=== PATIENT | female | born 1965 | race Caucasian/White ===

== ENCOUNTER → 2017-02-19 | Outpatient (REF) | payer OTHER | LOC: M LAB REF 16:36 | PROVIDERS: ATTEND Physician Assistant | DX: R30.0 Dysuria (principal) ==

== ENCOUNTER → 2017-04-15 | Outpatient (REF) | payer OTHER ==
[~2017-04-15] MED LIST: CLAR10CA3 PO; FISH1000 PO; IRON65TA PO; MULT1CHW39 PO
== END ==
LOC: M SMT 12:55
PROVIDERS: ATTEND Nurse Practitioner Women's Health
DX: N20.0 Calculus of kidney (principal)

== ENCOUNTER → 2017-04-20 | Outpatient (CLI) | payer OTHER ==
--- NOTE | 2017-04-20 07:48 | REP ---
Clinical: Nephrolithiasis. Findings: Lung bases are clear. Liver, spleen, pancreas, gallbladder, and bilateral adrenal glands are normal for noncontrast evaluation. The kidneys demonstrate multiple bilateral nonobstructing renal calculi measuring up to approximately 5 mm in the left kidney and 8 mm in the right kidney. There is no evidence for hydroureteronephrosis or obvious obstructing ureteral calculi. The enteric system is without obstruction or acute inflammatory process. The pelvis demonstrates normal bladder and age-appropriate uterus/adnexa. Calcifications in the pelvis likely represent phleboliths. No pelvic fluid or ascites. No obvious adenopathy. No free air. Abdominal aorta without aneurysm. Musculoskeletal structures demonstrate age-related changes without focal osseous abnormality. Impression: 1. Bilateral nonobstructing renal calculi measuring up to 8 mm in the right kidney and 5 mm in left kidney. 2. No acute abdominopelvic pathology appreciated. Signed by Serge Abbott MD 04/20/2017 07:40 A
== END ==
LOC: M RAD 07:12
PROVIDERS: ATTEND Nurse Practitioner Women's Health
DX: N20.0 Calculus of kidney (principal)

== ENCOUNTER → 2017-05-03 | Outpatient (CLI) | payer OTHER ==
[2017-05-03 14:09] LABS: CONTROL LINE HCG INT CTR LINE PRESENT; MEAN CORPUSCULAR HGB CONC 32.7 g/dl (32.0-36.5); MEAN CORPUSCULAR VOLUME 97.9 fl (80.0-96.0); RED CELL DISTRIBUTION WIDTH 12.6 % (11.5-14.5); WHITE BLOOD COUNT 5.6 K/mm3 (4.0-10.0)
[2017-05-03 14:10] LABS: INR 0.94
[2017-05-03 14:23] LABS: ANION GAP 6 MEQ/L (8-16); BLOOD UREA NITROGEN 12 MG/DL (7-18); CALCIUM LEVEL 9.9 MG/DL (8.5-10.1); CARBON DIOXIDE LEVEL 32 MEQ/L (21-32); CHLORIDE LEVEL 104 MEQ/L (98-107); CREATININE FOR GFR 0.82 MG/DL (0.55-1.02); GLOMERULAR FILTRATION RATE > 60.0 (>51); GLUCOSE, FASTING 95 MG/DL (70-105); POTASSIUM SERUM 4.9 MEQ/L (3.5-5.1); SODIUM LEVEL 142 MEQ/L (136-145)
== END ==
LOC: M SMT 08:55
PROVIDERS: ATTEND Nurse Practitioner Women's Health
DX: N20.0 Calculus of kidney (principal)

== ENCOUNTER 2017-05-06 07:04 | Day surgery (SDC) | payer OTHER ==
[~2017-05-06] VITALS: Ht 177.8 cm; Wt 66.7 kg
[2017-05-06] MEDS ORDERED: CLINDAMYCIN 900 MG in APPROPRIATE DILUENT 1 EA IV ONE (08:00)
[2017-05-06] MEDS ORDERED: LIDOCAINE 1% SDV 5 ML VIAL SQ ONE (08:00)
[2017-05-06] MEDS ORDERED: LR 1,000 ML IV ONE (08:00)
[2017-05-06] MEDS ORDERED: fentaNYL 100 MCG/2 ML INJECTION (J3010) As Ordered ONE (08:43)
[2017-05-06] MEDS ORDERED: MIDAZOLAM INJ 2 MG/2 ML VIAL (J2250) As Ordered ONE (08:43)
[2017-05-06] MEDS ORDERED: PROPOFOL 200 MG/20 ML VIAL As Ordered ONE (08:44)
[2017-05-06] MEDS ORDERED: LIDOCAINE 2% INJ 100 MG/5 ML SDV (FOR ANES.) As Ordered ONE (08:44)
[2017-05-06 10:45] VITALS: BP 115/60
--- NOTE | 2017-05-06 13:17 | REP ---
Supine abdomen two views: Comparison is a CT abdomen pelvis of 04/20/2017. There are multiple calcifications projected over each kidney, similar to the comparison CT. There are multiple pelvic calcifications, likely phleboliths although ureteral calculi cannot be entirely discounted. The bowel gas pattern is normal. Skeletal structures are unremarkable. Signed by Dean Goins MD 05/06/2017 08:01 A
--- NOTE | 2017-05-08 15:16 | RO ---
DATE OF PROCEDURE: 05/06/2017 PREPROCEDURE DIAGNOSIS: Kidney stones. POSTPROCEDURE DIAGNOSIS: Kidney stones. OPERATIVE PROCEDURE: Right extracorporeal shock wave lithotripsy. SURGEON: Zay Jung MD PURCHASING MANAGER/SALES: None ANESTHESIA: Monitored anesthesia care (MAC). OPERATIVE INDICATIONS: This is a 52-year-old female who was found to have multiple bilateral kidney stones, the largest stone measuring around 7 to 8 mm in the lower pole of the right kidney. It was recommended she be brought to the operating room today for the above listed procedure. DESCRIPTION OF PROCEDURE: The patient was brought to the operating room and MAC anesthesia was administered. Prophylactic antibiotics were infused. She was then placed in the supine position in preparation for right-sided extracorporeal shock wave lithotripsy. Fluoroscopy was utilized to monitor stone position and fragmentation throughout the procedure. Shock waves were then delivered to the largest right-sided kidney stone, ungated. The stone did appear to fragment well. Because of the stone size we ended up spending all the time working on that stone only and none of the other stones were shocked inside of the right kidney. After 2500 shocks, the procedure was concluded. The patient was then awakened from anesthesia and transported to the recovery room in stable condition. ESTIMATED BLOOD LOSS: 0 mL. INTRAOPERATIVE COMPLICATIONS: None. SPECIMENS: None. PLAN: The patient will followup in the clinic in a few weeks with imaging prior to assess for residual stone burden. Of note she will likely need additional surgery to try to clear to remainder of her stones. We might recommend ureteroscopy for treatment of the rest of her stones. DIANE
== END 2017-05-06 11:05 | disposition home or self-care (01) ==
LOC: M SDC 07:04
PROVIDERS: ATTEND Urology
DX: N20.0 Calculus of kidney (principal); K21.9 Gastro-esophageal reflux disease without esophagitis; Z88.1 Allergy status to other antibiotic agents
CPT/HCPCS: 50590; 74000; J2250; J3010

== ENCOUNTER → 2017-05-21 | Outpatient (REF) | payer OTHER | LOC: M LAB REF 15:05 | PROVIDERS: ATTEND Family Medicine | DX: R19.7 Diarrhea, unspecified (principal) ==

== ENCOUNTER → 2017-06-10 | Outpatient (CLI) | payer OTHER ==
--- NOTE | 2017-06-10 19:34 | REP ---
KUB ABDOMEN AND PELVIS: KUB film of abdomen and pelvis is performed and compared to prior study of 05/06/2017. Evaluation of the left renal shadow is limited due to overlying bowel gas. There again appear to be tiny subcentimeter calculi in both kidneys, similar in appearance compared to the prior study. One of the larger calculi inferiorly on the right is no longer seen. Multiple phleboliths are again seen in the pelvis. There is a nonspecific bowel gas pattern. Signed by Dean Salamanca MD 06/11/2017 02:20 P
== END ==
LOC: M SMT 15:08
PROVIDERS: ATTEND Urology
DX: N20.0 Calculus of kidney (principal)

== ENCOUNTER → 2017-06-29 | Outpatient (REF) | payer OTHER | LOC: M SFHCPLAZ 11:32 | PROVIDERS: ATTEND Nurse Practitioner Family | DX: A09 Infectious gastroenteritis and colitis, unspecified (principal) ==

== ENCOUNTER → 2017-10-25 | Outpatient (CLI) | payer OTHER ==
[2017-10-25 12:37] LABS: BASO # 0.1 10^3/uL (0.0-0.2); BASO % 1.2 % (0.0-1.0); EOS # 0.1 10^3/uL (0.0-0.50); EOS % 2.4 % (0.0-3.0); HEMATOCRIT 39.8 % (36.0-47.0); HEMOGLOBIN 13.1 g/dl (12.0-16.0); IMMATURE GRANULOCYTE % 0.2 % (0-0); LYMPH # 2.2 10^3/uL (1.5-4.5); LYMPH % 44.1 % (24.0-44.0); MEAN CORPUSCULAR HEMOGLOBIN 31.2 pg (27.0-33.0); MEAN CORPUSCULAR HGB CONC 32.9 g/dl (32.0-36.5); MEAN CORPUSCULAR VOLUME 94.8 fl (80.0-96.0); MONO # 0.4 10^3/uL (0.0-0.8); MONO % 8.1 % (0.0-5.0); NEUTROPHILS # 2.2 10^3/uL (1.8-7.7); PLATELET COUNT, AUTOMATED 262 10^3/uL (150-450); RED CELL DISTRIBUTION WIDTH 12.3 % (11.5-14.5); WHITE BLOOD COUNT 4.9 10^3/uL (4.0-10.0)
[2017-10-25 13:03] LABS: ANION GAP 5 MEQ/L (8-16); BLOOD UREA NITROGEN 12 MG/DL (7-18); CALCIUM LEVEL 9.3 MG/DL (8.5-10.1); CARBON DIOXIDE LEVEL 32 MEQ/L (21-32); CHLORIDE LEVEL 105 MEQ/L (98-107); CREATININE FOR GFR 0.85 MG/DL (0.55-1.30); GLOMERULAR FILTRATION RATE > 60.0 (>51); GLUCOSE, FASTING 89 MG/DL (70-100); POTASSIUM SERUM 3.8 MEQ/L (3.5-5.1); SODIUM LEVEL 142 MEQ/L (136-145)
== END ==
LOC: M LAB 11:41
DX: I87.393 Chronic venous hypertension (idiopathic) with other complications of bilateral lower extremity (principal)
CPT/HCPCS: 80048

== ENCOUNTER → 2017-11-15 | Outpatient (REF) | payer OTHER | LOC: M SFHCCLAY 14:45 | DX: Z01.419 Encounter for gynecological examination (general) (routine) without abnormal findings (principal) ==

== ENCOUNTER → 2018-01-10 | Outpatient (CLI) | payer OTHER | LOC: M SMT 11:30 | DX: N20.0 Calculus of kidney (principal) ==

== ENCOUNTER → 2018-11-02 | Outpatient (REF) | payer OTHER ==
[2018-11-02 19:28] LABS: APPEARANCE, URINE CLEAR (CLEAR); BACTERIA, URINE AUTO NEGATIVE (NEGATIVE); BILIRUBIN, URINE AUTO NEGATIVE (NEGATIVE); BLOOD, URINE BLOOD NEGATIVE (NEGATIVE); COLOR, URINE STRAW (YELLOW); GLUCOSE, URINE (UA) AUTO NEGATIVE (NEGATIVE); KETONE, URINE AUTO NEGATIVE (NEGATIVE); LEUKOCYTE ESTERASE, URINE AUTO NEGATIVE (NEGATIVE); NITRITE, URINE AUTO NEGATIVE (NEGATIVE); PROTEIN, URINE AUTO NEGATIVE (NEGATIVE); RBC, URINE AUTO 0 /HPF (0-3); SPECIFIC GRAVITY URINE AUTO 1.002 (1.002-1.035); SQUAMOUS EPITHELIAL CELL UR AU 0 /HPF (0-6); UROBILINOGEN, URINE AUTO 0.2 mg/dL (0.0-2.0); WBC, URINE AUTO 1 /HPF (0-3)
== END ==
LOC: M SMT 16:55
PROVIDERS: ATTEND Nurse Practitioner Family
DX: N20.0 Calculus of kidney (principal)

== ENCOUNTER → 2018-11-02 | Outpatient (CLI) | payer OTHER ==
--- NOTE | 2018-11-02 15:13 | REP ---
CT of the pelvis without IV and oral contrast for renal calculus evaluation: Comparison is 04/20/2017. There are multiple nonobstructive renal calculi bilaterally, as previously. The largest calculus in the right kidney measures up to 7 mm. The largest calculus of the left kidney measures up to 8 mm. There are no ureteral calculi. There is no hydronephrosis or hydroureter on the right or the left. There is wall thickening of the proximal sigmoid colon resulting in luminal narrowing. There is pericolonic induration in this area. There is inspissated material within a diverticulum in the proximal sigmoid colon in this area. The findings are compatible with acute diverticulitis, however, neoplasm is also included in the differential diagnosis. There is no ascites. There is no pneumoperitoneum. The visualized lung de l acruz are unremarkable. The unenhanced hepatic parenchyma, gallbladder, pancreas, spleen and adrenals are unremarkable. The abdominal aorta is unremarkable. There is no retroperitoneal adenopathy or mass. There is no bowel distension or obstruction. Pelvis: There are findings in the sigmoid colon as previously discussed. Uterus and adnexa are unremarkable. There is no adenopathy or ascites. Impression: Inspissated material within a diverticulum in the proximal sigmoid colon. Proximal sigmoid colonic wall thickening and pericolonic inflammation compatible with acute diverticulitis, however, neoplasm is also included in the differential diagnosis. No ascites or adenopathy. No pneumoperitoneum. No hydronephrosis. No ureteral calculi. Multiple bilateral nonobstructive renal calculi. Electronically Signed by Dean Goins MD 11/02/2018 03:04 P
== END ==
LOC: M RAD 14:05
PROVIDERS: ATTEND Nurse Practitioner Family
DX: N20.0 Calculus of kidney (principal); K63.89 Other specified diseases of intestine

== ENCOUNTER → 2018-11-18 | Outpatient (REF) | payer OTHER | LOC: M SFHCCLAY 11:13 | PROVIDERS: ATTEND Nurse Practitioner Family | DX: Z12.4 Encounter for screening for malignant neoplasm of cervix (principal) ==

== ENCOUNTER → 2019-10-23 | Outpatient (CLI) | payer OTHER ==
[~2019-10-23] MED LIST changes: -MULT1CHW39 PO; +MULT200T7 PO
--- NOTE | 2019-10-24 02:14 | REP ---
Clinical: Acute left shoulder pain . Technique: Internal rotation, external rotation, and Y view left shoulder . Findings: No acute fracture or dislocation. The acromioclavicular and glenohumeral joints are intact. No periarticular calcifications or degenerative changes are appreciated. Sub acromial space is normal. Surrounding soft tissues are unremarkable. Impression: Normal left shoulder radiographs. Electronically Signed by Serge Abbott MD 10/24/2019 02:06 A
== END ==
LOC: M CLY 16:04
PROVIDERS: ATTEND Family Medicine
DX: M25.512 Pain in left shoulder (principal)

== ENCOUNTER → 2019-11-15 | Outpatient (REF) | payer OTHER | LOC: M SFHCCLAY 12:00 | PROVIDERS: ATTEND Nurse Practitioner Family | DX: R50.9 Fever, unspecified (principal) ==

== ENCOUNTER → 2019-11-15 | Outpatient (CLI) | payer OTHER ==
--- NOTE | 2019-11-15 19:20 | REP ---
KUB ABDOMEN AND PELVIS: Two KUB films of abdomen and pelvis are performed. There is no evidence of bowel obstruction with no dilated small bowel loops. There is mild to moderate diffuse fecal material throughout the colon. Multiple subcentimeter intrarenal calculi are seen in the right kidney. There are also multiple intrarenal calculi in the left kidney. All are subcentimeter in size. Phleboliths are seen in the pelvis. There are mild degenerative changes of the spine. IMPRESSION: Multiple bilateral nephroliths. Electronically Signed by Dean Salamanca MD 11/16/2019 10:28 A
== END ==
LOC: M CLY 14:53
PROVIDERS: ATTEND Nurse Practitioner Family
DX: N20.0 Calculus of kidney (principal)

== ENCOUNTER → 2020-05-09 | Outpatient (REF) | payer OTHER ==
[2020-05-22 15:08] LABS: Ca Ox Monohydrate 100 % (.)
== END ==
LOC: M LAB REF 17:09
PROVIDERS: ATTEND Nurse Practitioner Family
DX: N20.0 Calculus of kidney (principal)

== ENCOUNTER → 2020-11-06 | Outpatient (REF) | payer OTHER ==
[2020-11-06 16:03] LABS: CHOLESTEROL RISK RATIO 2.316 (<5)
== END ==
LOC: M SFHCCLAY 12:04
PROVIDERS: ATTEND Nurse Practitioner Family
DX: Z13.220 Encounter for screening for lipoid disorders (principal); Z01.419 Encounter for gynecological examination (general) (routine) without abnormal findings

== ENCOUNTER → 2020-11-18 | Outpatient (CLI) | payer OTHER ==
--- NOTE | 2020-11-18 11:25 | REP ---
INDICATION: N20.0, RENAL STONES COMPARISON: 11/15/2019 TECHNIQUE: Supine view of the abdomen and pelvis. FINDINGS: Innumerable small bilateral intrarenal calculi measuring up to approximately 4 mm are again identified and similar to the findings on CT dated 11/02/2018. Bowel gas pattern is nonspecific. No organomegaly. Skeletal structures are intact. No foreign body. IMPRESSION: Bilateral nephrolithiasis similar to CT dated 11/02/2018. <Electronically signed by Serge Abbott > 11/18/20 [id number]
== END ==
LOC: M CLY 10:45
PROVIDERS: ATTEND Nurse Practitioner Family
DX: N20.0 Calculus of kidney (principal)

== ENCOUNTER → 2021-09-10 | Outpatient (CLI) | payer OTHER ==
--- NOTE | 2021-09-10 12:44 | REP ---
INDICATION: M25.561, RIGHT KNEE PAIN COMPARISON: None TECHNIQUE: Five views FINDINGS: The compartments are symmetric and well maintained. There is no fracture, dislocation, or subluxation. There is no destructive osseous lesion. IMPRESSION: Within normal limits <Electronically signed by Darrick Samson > 09/10/21 [id number]
== END ==
LOC: M CLY 11:52
PROVIDERS: ATTEND Nurse Practitioner Family
DX: M25.561 Pain in right knee (principal)

== ENCOUNTER → 2021-11-06 | Outpatient (REF) | payer OTHER | LOC: M SFHCCLAY 07:22 | PROVIDERS: ATTEND Nurse Practitioner Family | DX: Z12.4 Encounter for screening for malignant neoplasm of cervix (principal) ==

== ENCOUNTER → 2022-07-29 | Outpatient (CLI) | payer OTHER | LOC: M CLY 11:53 | PROVIDERS: ATTEND Nurse Practitioner Family | DX: M51.36 Other intervertebral disc degeneration, lumbar region (principal) ==

== ENCOUNTER → 2022-08-06 | Outpatient (CLI) | payer OTHER ==
[~2022-08-06] MED LIST changes: +AMIT10TA7 PO; +CALC250T PO; +KP F1200 PO; +OMEP40CA5 PO; +PROBCAP14 PO; +VITMTA PO
== END ==
LOC: M LABSMTC 09:54
PROVIDERS: ATTEND Anesthesiology
DX: Z01.812 Encounter for preprocedural laboratory examination (principal); Z11.52 Encounter for screening for COVID-19

== ENCOUNTER 2022-08-11 11:07 | Day surgery (SDC) | payer OTHER ==
[~2022-08-11] VITALS: Ht 177.8 cm; Wt 62.6 kg
[~2022-08-11 11:07] MED LIST changes: +NS 1,000 ML IV ONE
[2022-08-11] MEDS ORDERED: propofoL 200 MG/20 ML VIAL As Ordered ONE (12:29)
[2022-08-11] MEDS ORDERED: LIDOCAINE 2% INJ 100 MG/5 ML SYRINGE As Ordered ONE (12:29)
[2022-08-11] MEDS ORDERED: MIDAZOLAM INJ 2MG/2ML VIAL (J2250 PER 1MG) As Ordered ONE (12:30)
[2022-08-11 13:40] VITALS: BP 120/67
== END 2022-08-11 13:45 | disposition home or self-care (01) ==
LOC: M OPP 11:07
PROVIDERS: ATTEND Internal Medicine Gastroenterology
DX: Z12.11 Encounter for screening for malignant neoplasm of colon (principal); K57.30 Diverticulosis of large intestine without perforation or abscess without bleeding; K64.8 Other hemorrhoids; K21.00 Gastro-esophageal reflux disease with esophagitis, without bleeding; K29.70 Gastritis, unspecified, without bleeding; M19.90 Unspecified osteoarthritis, unspecified site; F41.9 Anxiety disorder, unspecified; Z87.442 Personal history of urinary calculi; Z88.1 Allergy status to other antibiotic agents; Z88.8 Allergy status to other drugs, medicaments and biological substances; Z79.899 Other long term (current) drug therapy
CPT/HCPCS: 43239; 45378; 88305; J2250

== ENCOUNTER → 2022-12-14 | Outpatient (CLI) | payer OTHER ==
[~2022-12-14] MED LIST changes: -NS 1,000 ML IV ONE
== END ==
LOC: M WHC 09:09
PROVIDERS: ATTEND Advanced Practice Midwife
DX: Z12.31 Encounter for screening mammogram for malignant neoplasm of breast (principal)

== ENCOUNTER → 2022-12-14 | Outpatient (REF) | payer OTHER | LOC: M SFHCWAGY 12:59 | PROVIDERS: ATTEND Advanced Practice Midwife | DX: Z12.4 Encounter for screening for malignant neoplasm of cervix (principal) | CPT/HCPCS: 87624; G0123 ==

== ENCOUNTER → 2023-06-02 | Outpatient (CLI) | payer OTHER ==
[2023-06-03 09:11] LABS: C REACTIVE PROTEIN QUANTITATIV < 0.40 MG/DL (<1.0)
[2023-06-03 15:09] LABS: ANTINUCLEAR ANTIBODIES DIRECT Negative (Negative); SJOGREN'S ANTI SS-A 0.3 AI (0.0-0.9); SJOGREN'S ANTI SS-B <0.2 AI (0.0-0.9)
[2023-06-05 18:52] LABS: RHEUMATOID FACTOR QUANT 5.1 IU/ML (<14)
== END ==
LOC: M LAB 11:37
PROVIDERS: ATTEND Allergy & Immunology Allergy
DX: H04.123 Dry eye syndrome of bilateral lacrimal glands (principal)

== ENCOUNTER → 2023-11-03 | Outpatient (REF) | payer OTHER ==
[2023-11-03 17:48] LABS: BASO # 0.1 10^3/uL (0.0-0.2); BASO % 1.2 % (0.0-1.0); EOS # 0.2 10^3/uL (0.0-0.5); EOS % 2.9 % (0.0-3.0); HEMATOCRIT 40.1 % (36.0-47.0); HEMOGLOBIN 13.2 g/dl (12.0-15.5); LYMPH # 2.3 10^3/uL (1.5-5.0); LYMPH % 41.5 % (24.0-44.0); MEAN CORPUSCULAR HEMOGLOBIN 32.2 pg (27.0-33.0); MEAN CORPUSCULAR HGB CONC 32.9 g/dl (32.0-36.5); MEAN CORPUSCULAR VOLUME 97.8 fl (80.0-96.0); MONO # 0.5 10^3/uL (0.0-0.8); MONO % 8.6 % (2.0-8.0); NEUTROPHILS # 2.6 10^3/uL (1.5-8.5); NEUTROPHILS % 45.6 % (36.0-66.0); PLATELET COUNT, AUTOMATED 306 10^3/uL (150-450); WHITE BLOOD COUNT 5.6 10^3/uL (4.0-10.0)
[2023-11-03 18:06] LABS: HEMOGLOBIN A1c 5.5 % (4.0-6.0)
[2023-11-03 18:20] LABS: ALBUMIN 4.1 G/DL (3.2-5.2); ALKALINE PHOSPHATASE 93 U/L (46-116); ALT/SGPT 18 U/L (7.0-40); AST/SGOT 21 U/L (<34); BILIRUBIN,TOTAL 0.3 MG/DL (0.3-1.2); BLOOD UREA NITROGEN 23 MG/DL (9-23); CALCIUM LEVEL 9.6 MG/DL (8.5-10.1); CARBON DIOXIDE LEVEL 33 MMOL/L (20-31); CHLORIDE LEVEL 102 MMOL/L (98-107); CHOLESTEROL LEVEL 214 MG/DL (<200); CHOLESTEROL RISK RATIO 2.57 (<5); FREE T4 0.86 NG/DL (0.89-1.76); GLOMERULAR FILTRATION RATE > 60.0 (>51); GLUCOSE, FASTING 86 MG/DL (60-100); HDL CHOLESTEROL 83.1 MG/DL (>40); IRON (FE) 78 UG/DL (50-170); LDL CHOLESTEROL 116.7 MG/DL (<100); NON-HDL-C 130.9 MG/DL; PERCENT SATURATION 20.3 % (13.2-45.0); POTASSIUM SERUM 4.1 MMOL/L (3.5-5.1); SODIUM LEVEL 139 MMOL/L (136-145); TOTAL IRON BINDING CAPACITY 384 UG/DL (250-425); TOTAL PROTEIN 7.2 G/DL (5.7-8.2); TRIGLYCERIDES LEVEL 71 MG/DL (<150)
[2023-11-03 18:21] LABS: TOTAL 25(OH) VITAMIN D 39.4 NG/ML (20.0-100.0)
== END ==
LOC: M SFHCCLAY 11:25
PROVIDERS: ATTEND Nurse Practitioner Family
DX: K21.9 Gastro-esophageal reflux disease without esophagitis (principal); H83.2X1 Labyrinthine dysfunction, right ear; D50.8 Other iron deficiency anemias; Z13.220 Encounter for screening for lipoid disorders; I83.93 Asymptomatic varicose veins of bilateral lower extremities; F41.1 Generalized anxiety disorder; Z13.1 Encounter for screening for diabetes mellitus

== ENCOUNTER → 2023-12-21 | Outpatient (CLI) | payer OTHER | LOC: M WHC 13:17 | PROVIDERS: ATTEND Advanced Practice Midwife | DX: Z12.31 Encounter for screening mammogram for malignant neoplasm of breast (principal) ==

== ENCOUNTER → 2023-12-21 | Outpatient (CLI) | payer OTHER | LOC: M WHC 13:48 | PROVIDERS: ATTEND Advanced Practice Midwife | DX: Z12.31 Encounter for screening mammogram for malignant neoplasm of breast (principal) ==

== ENCOUNTER → 2024-02-01 | Outpatient (CLI) | payer OTHER | LOC: M CLY 12:02 | PROVIDERS: ATTEND Nurse Practitioner Family | DX: M25.561 Pain in right knee (principal) ==

== ENCOUNTER → 2024-03-15 | Outpatient (REF) | payer OTHER ==
[2024-03-15 18:28] LABS: BASO # 0.1 10^3/uL (0.0-0.2); BASO % 1.2 % (0.0-1.0); EOS # 0.2 10^3/uL (0.0-0.5); EOS % 2.6 % (0.0-3.0); HEMATOCRIT 39.7 % (36.0-47.0); HEMOGLOBIN 13.2 g/dl (12.0-15.5); LYMPH # 2.7 10^3/uL (1.5-5.0); LYMPH % 45.2 % (24.0-44.0); MEAN CORPUSCULAR HEMOGLOBIN 31.5 pg (27.0-33.0); MEAN CORPUSCULAR HGB CONC 33.2 g/dl (32.0-36.5); MEAN CORPUSCULAR VOLUME 94.7 fl (80.0-96.0); MONO # 0.5 10^3/uL (0.0-0.8); MONO % 8.1 % (2.0-8.0); NEUTROPHILS # 2.6 10^3/uL (1.5-8.5); NEUTROPHILS % 42.7 % (36.0-66.0); PLATELET COUNT, AUTOMATED 292 10^3/uL (150-450); RED BLOOD COUNT 4.19 10^6/uL (4.00-5.40); WHITE BLOOD COUNT 6.1 10^3/uL (4.0-10.0)
[2024-03-15 19:01] LABS: ALBUMIN 3.7 G/DL (3.2-5.2); ALKALINE PHOSPHATASE 95 U/L (46-116); ALT/SGPT 21 U/L (7.0-40); AST/SGOT 20 U/L (<34); BILIRUBIN,TOTAL 0.4 MG/DL (0.3-1.2); BLOOD UREA NITROGEN 22 MG/DL (9-23); CALCIUM LEVEL 9.7 MG/DL (8.5-10.1); CARBON DIOXIDE LEVEL 32 MMOL/L (20-31); CHLORIDE LEVEL 102 MMOL/L (98-107); CREATININE FOR GFR 0.95 MG/DL (0.55-1.30); GLOMERULAR FILTRATION RATE > 60.0 (>51); GLUCOSE, FASTING 91 MG/DL (60-100); MAGNESIUM LEVEL 2.2 MG/DL (1.8-2.4); POTASSIUM SERUM 4.3 MMOL/L (3.5-5.1); SODIUM LEVEL 138 MMOL/L (136-145)
[2024-03-15 19:03] LABS: FREE T4 0.86 NG/DL (0.89-1.76); THYROID STIMULATING HORMONE 1.644 uIU/ML (0.55-4.78)
== END ==
LOC: M SFHCCLAY 15:13
PROVIDERS: ATTEND Nurse Practitioner Family
DX: R19.7 Diarrhea, unspecified (principal); R25.3 Fasciculation

== ENCOUNTER → 2025-01-30 | Outpatient (REF) | payer OTHER ==
[~2025-01-30] MED LIST changes: -MULT200T7 PO; +MULT200T9 PO
[2025-01-30 18:28] LABS: TOTAL 25(OH) VITAMIN D 43.2 NG/ML (20.0-100.0)
[2025-01-30 18:29] LABS: ALBUMIN 3.6 G/DL (3.2-5.2); BILIRUBIN,TOTAL 0.5 MG/DL (0.3-1.2); CALCIUM LEVEL 9.2 MG/DL (8.5-10.1); CHOLESTEROL RISK RATIO 2.69 (<5); CREATININE FOR GFR 0.83 MG/DL (0.55-1.30); GLOMERULAR FILTRATION RATE 81.2 (>51); HDL CHOLESTEROL 81.4 MG/DL (>40); NON-HDL-C 137.6 MG/DL
[2025-01-30 18:30] LABS: BASO # 0.1 10^3/uL (0.0-0.2); BASO % 1.3 % (0.0-1.0); EOS # 0.1 10^3/uL (0.0-0.5); EOS % 2.6 % (0.0-3.0); HEMATOCRIT 39.8 % (36.0-47.0); HEMOGLOBIN 12.9 g/dl (12.0-15.5); LYMPH # 2.1 10^3/uL (1.5-5.0); LYMPH % 45.6 % (24.0-44.0); MEAN CORPUSCULAR HEMOGLOBIN 31.4 pg (27.0-33.0); MEAN CORPUSCULAR HGB CONC 32.4 g/dl (32.0-36.5); MEAN CORPUSCULAR VOLUME 96.8 fl (80.0-96.0); MONO # 0.4 10^3/uL (0.0-0.8); MONO % 9.2 % (2.0-8.0); NEUTROPHILS # 1.9 10^3/uL (1.5-8.5); NEUTROPHILS % 41.1 % (36.0-66.0); PLATELET COUNT, AUTOMATED 245 10^3/uL (150-450); RED BLOOD COUNT 4.11 10^6/uL (4.00-5.40); WHITE BLOOD COUNT 4.7 10^3/uL (4.0-10.0)
[2025-01-30 18:47] LABS: HEMOGLOBIN A1c 5.5 % (4.0-6.0)
== END ==
LOC: M SFHCCLAY 10:00
PROVIDERS: ATTEND Nurse Practitioner Family
DX: F41.1 Generalized anxiety disorder (principal); R25.3 Fasciculation; G11.9 Hereditary ataxia, unspecified; Z78.0 Asymptomatic menopausal state; Z13.1 Encounter for screening for diabetes mellitus; Z13.220 Encounter for screening for lipoid disorders; H83.2X1 Labyrinthine dysfunction, right ear; D50.8 Other iron deficiency anemias; I83.93 Asymptomatic varicose veins of bilateral lower extremities; K21.9 Gastro-esophageal reflux disease without esophagitis

== ENCOUNTER 2025-05-18 02:24 | Observation (INO) | payer OTHER ==
[~2025-05-18] VITALS: Ht 177.8 cm; Wt 74.3 kg
[~2025-05-18 02:24] MED LIST changes: +AMIT10TA11 PO; -AMIT10TA7 PO
[2025-05-18 04:24] VITALS: BP 109/58; TEMP 97.3; O2SAT 94
[2025-05-18] MEDS ORDERED: ACETAMINOPHEN 325 MG TAB PO PRN (05:40)
[2025-05-18] MEDS ORDERED: MONT10TA97 PO (06:25)
[2025-05-18] MEDS ORDERED: SERT25TA85 PO (06:26)
[2025-05-18 07:09] LABS: BASO # 0.0 10^3/uL (0.0-0.2); BASO % 0.4 % (0.0-1.0); EOS # 0.0 10^3/uL (0.0-0.5); EOS % 0.2 % (0.0-3.0); LYMPH # 1.5 10^3/uL (1.5-5.0); LYMPH % 14.0 % (24.0-44.0); MONO # 0.6 10^3/uL (0.0-0.8); MONO % 5.9 % (2.0-8.0); NEUTROPHILS # 8.4 10^3/uL (1.5-8.5); NEUTROPHILS % 79.2 % (36.0-66.0); PLATELET COUNT, AUTOMATED 193 10^3/uL (150-450)
[2025-05-18 07:35] LABS: ALT/SGPT 15.0 U/L (7.0-40); AST/SGOT 25.0 U/L (<34); C REACTIVE PROTEIN QUANTITATIV 3.48 MG/DL (<1.0); CALCIUM LEVEL 9.2 MG/DL (8.3-10.6); CARBON DIOXIDE LEVEL 29.0 MMOL/L (20-31); CHLORIDE LEVEL 106.0 MMOL/L (98-107); CREATININE FOR GFR 0.92 MG/DL (0.55-1.30); GLOMERULAR FILTRATION RATE 71.3 (>45); MAGNESIUM LEVEL 1.8 MG/DL (1.8-2.4); POTASSIUM SERUM 4.2 MMOL/L (3.5-5.1); SODIUM LEVEL 145.0 MMOL/L (136-145)
[2025-05-18] MEDS ORDERED: OMEP-173 PO (08:35)
[2025-05-18] MEDS: PANTOPRAZOLE 40MG VIAL IV SCH (08:35)
[2025-05-18] MEDS ORDERED: THERTAB52 PO (08:35)
[2025-05-18] MEDS ORDERED: MAGN400T35 PO (08:36)
[2025-05-18] MEDS ORDERED: HOME MED LIST COMPLETE! XX SCH (08:40)
[2025-05-18] MEDS ORDERED: CIPR500T39 PO (11:11)
[2025-05-18] MEDS ORDERED: METR-265 PO (11:11)
[2025-05-18] MEDS ORDERED: ONDA-282 PO (11:11)
[2025-05-18] MEDS ORDERED: CIPROFLOXACIN 500 MG TABLET PO SCH (18:00)
[2025-05-18] MEDS ORDERED: HEPARIN SOD 5000 UNITS/ML 1 ML VIAL/SYRINGE SC SCH (21:00)
== END 2025-05-18 12:02 | disposition home or self-care (01) ==
LOC: M ED INP 05:09 → M MS4PR 05:15 → INTOOBSV 05:39 → OBSVTOIN 05:39
PROVIDERS: ADMIT Student in an Organized Health Care Education/Training Program; ATTEND Student in an Organized Health Care Education/Training Program
DX: K57.80 Diverticulitis of intestine, part unspecified, with perforation and abscess without bleeding (principal); Z87.19 Personal history of other diseases of the digestive system; R11.2 Nausea with vomiting, unspecified; K21.9 Gastro-esophageal reflux disease without esophagitis; F41.9 Anxiety disorder, unspecified; J30.1 Allergic rhinitis due to pollen; R10.32 Left lower quadrant pain; Z87.442 Personal history of urinary calculi; Z83.3 Family history of diabetes mellitus; Z82.49 Family history of ischemic heart disease and other diseases of the circulatory system; F43.9 Reaction to severe stress, unspecified; Z79.899 Other long term (current) drug therapy; Z88.0 Allergy status to penicillin; Z88.1 Allergy status to other antibiotic agents
CPT/HCPCS: 36415; 80053; 83605; 83735; 84145; 85025; 86140; 96374; J2470

== ENCOUNTER → 2025-06-26 | Outpatient (CLI) | payer OTHER ==
[~2025-06-26] MED LIST changes: +CIPR500T39 PO; +MAGN400T35 PO; +METR-265 PO; +MONT10TA97 PO; +OMEP-173 PO; +ONDA-282 PO; +SERT25TA85 PO; +THERTAB52 PO
== END ==
LOC: M WHC 15:06
PROVIDERS: ATTEND Advanced Practice Midwife
DX: Z12.31 Encounter for screening mammogram for malignant neoplasm of breast (principal); R92.323 Mammographic fibroglandular density, bilateral breasts

== ENCOUNTER → 2025-06-26 | Outpatient (REF) | payer OTHER ==
[2025-06-28 15:42] LABS: HPV APTIMA Not Detected (Not Detected)
== END ==
LOC: M SFHCWAGY 18:12
PROVIDERS: ATTEND Advanced Practice Midwife
DX: Z12.4 Encounter for screening for malignant neoplasm of cervix (principal)
CPT/HCPCS: 87624; G0123